=== PATIENT | male | born 1945 | race Caucasian/White ===

== ENCOUNTER 2024-07-04 17:49 | Emergency (ER) | payer OTHER, SELFPAY ==
[2024-07-04 19:00] VITALS: BP 136/67; PULSE 88; RESP 19; TEMP 37.1; O2SAT 99; BMI 25.5
--- NOTE | 2024-07-04 19:09 | XR_ITS ---
Examination: Shoulder,right, 3 views Technique: Shoulder AP internal rotation, AP external rotation, Y view shoulder, 3 views Exam date and time :June 24, 2024 at 2003 hrs. Indications: Patient fell 3 times today with injury to the right shoulder, right shoulder pain. Findings: Prominent osteopenia Moderate to advanced osteoarthritis glenohumeral joint No fracture or shoulder dislocation No AC joint separation Impression: No shoulder fracture or dislocation
--- NOTE | 2024-07-04 19:09 | XR_ITS ---
Examination: CT cervical spine without contrast 2-D sagittal reconstructions 2-D coronal reconstructions 3-D reconstructions. Exam date and time:July 04, 2024 1920 hrs. Indications: Ground-level fall today with injury to the neck, neck pain CTDI:vol (mGy) 7.68 DLP: (mGycm) 177 Technique: Multiple 2 mm axial sections of the cervical spine have been obtained. The coronal and sagittal reconstructions have been obtained. 3-D reconstructions have been obtained. Low dose protocols were performed. One or more of the following dose reduction techniques were used; automated exposure control, adjustment of the mA and/or KV according to patient size, use of iterative reconstruction technique. Findings: Axial sections demonstrate intact base of the skull. C1 exhibit satisfactory relationship to the odontoid. No acute cervical vertebral body fracture seen. Alignment posterior spinous processes satisfactory. Impression: No acute cervical fracture.
--- NOTE | 2024-07-04 19:09 | XR_ITS ---
Examination: PA chest single view Technique: Upright PA chest single view Exam date and time: July 04, 2024 2005 hrs. Comparison December 31, 2011 Indications: Onset chest pain after falling today with into the chest Findings: Normal heart size No pneumothorax Accentuation basilar bronchovascular markings No hemothorax Clavicles ribs appear intact as well as bones of the visualized shoulders Impression: No pneumothorax or pulmonary contusion
--- NOTE | 2024-07-04 19:09 | XR_ITS ---
Examination:Right hip AP, lateral, AP pelvis 3 views Technique: Hip AP lateral, AP pelvis, 3 views Exam date and time:July 04, 2024 at 2003 hrs. Indications: Patient fell 3 times a day with injury to the right hip, right hip pain. Findings: Prominent osteopenia No radiopaque fracture or dislocation Bones of the pelvis intact Impression: No right hip fracture or dislocation.
--- NOTE | 2024-07-04 19:09 | EKG_ITS ---
[facility] Test Date: 2024-07-04 Pat Name: SMITA WEISS Department: Room: - Gender: Male Tour Operator: : 1945 Requested By: Kyle Raygoza Order Number: [id number] Reading MD: Kyle Raygoza Measurements Intervals [place] Rate: 71 P: 75 NH: 176 QRS: 51 QRSD: 94 T: 34 QT: 378 QTc: 411 Interpretive Statements SINUS RHYTHM WITH MARKED SINUS ARRHYTHMIA NONSPECIFIC T-WAVE ABNORMALITY No previous ECG available for comparison /[id number]/[id number].pdf
--- NOTE | 2024-07-04 19:09 | XR_ITS ---
Examination: CT brain head without contrast. 2-D sagittal coronal reconstructions Date and time of exam:July 04, 2024 1920 hrs. Indications: Ground-level fall today with headache after head injury, dizziness, personal history left facial droop on December 31, 2011 right internal capsular CVA stroke CTDI: vol (mGy):47.1 DLP: (mGycm):886 Technique: Multiple CT axial sections of the brain have been obtained, 5 mm slice thickness. Contrast has not been administered. 2-D sagittal, coronal reconstructions have been obtained Low dose protocols were performed. One or more of the following dose reduction techniques were used; automated exposure control, adjustment of the mA and/or KV according to patient size, use of iterative reconstruction technique. Findings: No significant ventricular enlargement. Intra-axial or extra-axial hemorrhage density is not seen. No mass effect or midline shift Basal cisterns are not remarkable. Fourth ventricle is midline. Cranial vault intact. Impression: Negative for acute hemorrhage, mass effect or midline shift As clinically warranted brain MRI follow-up would best assess for acute ischemic change
--- NOTE | 2024-07-04 19:10 | EDRME_ITS ---
Rapid Medical Screening Exam [facility] Arrival date/time: 07/04/24 17:49 79M with history of prostate cancer, possible TIA/CVA presents to ED with R hip and shoulder pain after his leg gave out 3 times on him today. Chief Complaint: Extremity Injury, Upper Vital signs: Vital Signs Temperature 98.8 F 07/04/24 19:00 Pulse Rate 88 07/04/24 19:00 Respiratory Rate 19 07/04/24 19:00 Blood Pressure 136/67 H 07/04/24 19:00 Pulse Oximetry (%) 99 07/04/24 19:00 Oxygen Delivery Method Room Air 07/04/24 19:00
[2024-07-04 19:42] LABS: Basophils # (Auto) 0.1 Thou/mm3 (0.0-0.2); Basophils % (Auto) 0 % (0-2.5); Eosinophils % (Auto) 0 % (0-10); Hematocrit 38.2 % (41.0-53.0); Hemoglobin 13.3 g/dL (13.5-16.0); Immature Granulocytes % (Auto) 0 % (0-0); Immature Granulocytes Auto 0.08 Thou/mm3 (0.00-0.00); Lymphocytes # (Auto) 1.1 Thou/mm3 (1.0-4.8); Lymphocytes % (Auto) 6 % (10-50); Mean Corpuscular HGB Conc 34.8 g/dl (31.0-37.0); Mean Corpuscular Hemoglobin 30.9 pg (25.0-35.0); Mean Corpuscular Volume 89 fL (80-100); Monocytes # (Auto) 2.3 Thou/mm3 (0.0-0.8); Monocytes % (Auto) 12 % (0-12); Neutrophils # (Auto) 15.7 Thou/mm3 (1.8-7.7); Neutrophils % (Auto) 82 % (37-80); Nucleated Red Blood Cell % 0 /100 WBC (0); Platelet Count 216 Thou/mm3 (140-440); RDW Standard Deviation 43.8 fL (35.1-43.9); White Blood Count 19.1 Thou/mm3 (3.8-10.6)
[2024-07-04 19:56] LABS: INR 1.1 (0.9-1.3); Partial Thromboplastin Time 29.1 Seconds (22.0-36.0); Prothrombin Time 12.4 Seconds (9.0-12.2)
[2024-07-04 19:59] LABS: Alanine Aminotransferase 10 U/L (10-49); Albumin, Serum 4.8 gm/dL (3.4-4.8); Albumin/Globulin Ratio 1.5 (1.2-2.2); Alkaline Phosphatase 65 U/L (46-116); Anion Gap 6 (7-16); Aspartate Amino Transferase 23 U/L (0-34); BUN/Creatinine Ratio 14 Ratio (12-20); Bilirubin,Total 1.6 mg/dL (0.3-1.2); Blood Urea Nitrogen 13 mg/dL (9-23); Carbon Dioxide 26.6 mMol/L (20.0-31.0); Chloride 102 mMol/L (98-107); Creatinine (Component) 0.9 mg/dL (0.6-1.3); Estimated Creatinine Clearance 64.3 mL/min (>60); Globulin 3.1 gm/dL (2.3-3.5); Glucose 107 mg/dL (74-106); Osmolality,Calculated 270 (275-295); Potassium 3.6 mMol/L (3.4-5.1); Sodium 135 mMol/L (136-145); Total Protein 7.9 gm/dL (5.7-8.2); Troponin I < 0.020 ng/mL (0.0-0.045); eGFR > 60 See Note
[2024-07-04 21:01] VITALS: BP 126/82; PULSE 82; RESP 18; TEMP 37.5; O2SAT 96
[2024-07-04 23:45] VITALS: BP 117/72; PULSE 81; RESP 19; TEMP 37.6; O2SAT 96
[2024-07-05] VITALS (32 sets, daily range): BP systolic 100–147; BP diastolic 62–91; PULSE 63–93; RESP 12–31; TEMP 36.8–37.6; O2SAT 91–99
[2024-07-05 01:27] LABS: Collection Type, Urine Clean Catch
[2024-07-05 01:37] LABS: Bilirubin,Urine Negative (Negative); Blood,Urine 1+ (Negative); Clarity,Urine Clear (Clear/Hazy); Color,Urine Yellow (Lt Yel-Yel); Glucose, Urine Negative (Negative); Ketones,Urine 1+ (Negative); Leukocyte Esterase,Urine Negative (Negative); Nitrite,Urine Negative (Negative); PH,Urine 5.5 (5.0-7.0); Protein,Urine 2+ (Neg - Trace); RBC,Urine 3 /hpf (0-3); Specific Gravity,Urine 1.031 (1.001-1.035); Squamous Epithelial Cell,Urine < 1 /hpf (0-5); Urobilinogen,Urine Negative mg/dL (0.0-1.0); WBC,Urine 2 /hpf (0-5)
[2024-07-05 01:42] LABS: Amphetamine/Methamp Scrn,U Negative (Negative); Barbiturate Screen,Urine Negative (Negative); Benzodiazepines Screen,Urine Negative (Negative); Benzoylecgonine Screen, Ur Negative (Negative); Fentanyl Screen,Urine Negative (Negative); Opiate Screen,Urine Negative (Negative); THC Screen,Urine Negative (Negative)
--- NOTE | 2024-07-05 02:08 | PD.EDUPEX ---
Upper Extremity Injury RME/HPI General Chief Complaint: Extremity Injury, Upper Stated Complaint: ground level fall . right shoulder pain Time Seen by Provider: 07/05/24 07:13 Arrival date/time: 07/04/24 17:49 Limitations: no limitations RME / HPI RME / HPI narrative: 07/04/24 17:49 79M with history of prostate cancer, possible TIA/CVA presents to ED with R hip and shoulder pain after his leg gave out 3 times on him today. ----- Dr. Muhammad's Main ED Evaluation: 79-year-old with a possible TIA in the past, history of prostate cancer, presenting to the emergency department after his right leg gave out and he fell hurting his right hip and shoulder. The patient otherwise did not hit his head is not complaining of neck pain. Denies any other associated symptoms. Denies any loss of consciousness. Patient states he lives alone. Related Data Allergies Allergy/AdvReac Type Severity Reaction Status Date / Time clonidine AdvReac Severe LOWERS Verified 01/01/12 09:19 BLOOD PRESSURE AND HEART RATE TOO LOW. Review of Systems Review of Systems Systems Reviewed: All systems reviewed, normal except as documented Past Medical History Past Medical History CARDIAC: Positive Cardiac Disorders and Hypertension; Negative Congestive Heart Failure RESPIRATORY: Negative Chronic Obstructive Pulmonary Disease (COPD) GENITOURINARY: Negative Renal Disease ENDOCRINE: Negative Diabetes Mellitus Type 1 or Diabetes Mellitus Type 2 Social History SMOKING STATUS: Never smoker ED Exam General Limitations: Present no limitations General appearance: Present alert and in no apparent distress Head Head exam: Present atraumatic Eye Eye exam: Present normal appearance, PERRL and EOMI ENT ENT exam: Present normal exam, normal oropharynx and mucous membranes moist Neck Neck exam: Present normal inspection, full ROM and trachea midline Chest Chest inspection: Present normal inspection and symmetric chest wall rise Respiratory Respiratory exam: Present normal lung sounds bilaterally Cardiovascular Cardiovascular exam: Present regular rate, normal rhythm and normal heart sounds Abdominal Exam Abdominal exam: Present soft and normal bowel sounds Extremities Exam Extremities exam: Present normal inspection and full ROM Back Exam Back exam: Present normal inspection and full ROM Neurological Exam Neurological exam: Present alert, oriented X3 and CN II-XII intact Psychiatric Psychiatric exam: Present normal affect and normal mood Skin Skin exam: Present warm, dry, intact and normal color Course Course Course Narrative: CXR is ordered to r/o pneumothorax. 0600: Care signed out to the next oncoming provider. Past medical, surgical, social and family history reviewed. Vitals and home medications reviewed. Results and treatment plan discussed. They will assume the care of the patient at this time and will follow the patient, pending social human services assistants consultation. Quality Measures none Orders Category Date Time Status Consult Farm Supervisor X1 Care 07/05/24 05:46 Active EKG (ED ONLY) *Do not use* NOW Care 07/04/24 19:09 Completed Referral Physical Therapy Stat Cons 07/05/24 08:54 Active Diet Regular Diet 07/05/[address] cervical spine wo con Stat Exams 07/04/24 19:[address] head/brain wo con Stat Exams 07/04/24 19:09 Completed EKG (ED Only) Stat Exams 07/04/24 19:09 Draft XR chest 1V portable Stat Exams 07/04/24 19:09 Completed XR hip RT w pelvis min 4V Stat Exams 07/04/24 19:09 Completed XR shoulder RT min 2V Stat Exams 07/04/24 19:09 Completed CBC Stat Lab 07/04/24 19:30 Completed Comprehensive Metabolic Panel Stat Lab 07/04/24 19:30 Completed Drug Screen,Urine Stat Lab 07/05/24 00:45 Completed Partial Thromboplastin Time Stat Lab 07/04/24 19:30 Completed Path Review Blood Smear Stat Lab 07/04/24 19:30 Completed Prothrombin Time with INR Stat Lab 07/04/24 19:30 Completed Troponin I Stat Lab 07/04/24 19:30 Completed Urinalysis Stat Lab 07/05/24 00:45 Completed Vital Signs Vital signs: Vital Signs Temperature 98.8 F 07/04/24 19:00 Pulse Rate 88 07/04/24 19:00 Respiratory Rate 19 07/04/24 19:00 Blood Pressure 136/67 H 07/04/24 19:00 Pulse Oximetry (%) 99 07/04/24 19:00 Oxygen Delivery Method Room Air 07/04/24 19:00 Pulse ox is 99% on room air, which is normal according to my interpretation. Extremity Injury Patient data External records reviewed:: [facility] previous records (Per chart review, patient has no previous ED visits or admissions to this facility.) Clinical information provided by:: patient Social determinants that could affect healthcare access:: none Patient has the following chronic illnesses:: HTN How is presenting disease/condition affected by chronic disease/condition?: uneffected by Evaluation data The following diagnostics were reviewed and interpreted by me:: lab results, radiology exam(s) and EKG tracing(s) Lab and/or radiology exams considered but not ordered:: none Interpretation Summary: WBC count is elevated at 19.1, HnH is stable, troponin is normal, Total Bilirubin is slightly elevated at 1.6, PT is slightlt elevated at 12.4, PTT is normal, UDS is negative, according to my interpretation. EKG done at 1935, NSR, rate of 71, no ST elevations or depressions, QTc: 400, normal intervals, normal axis, no STEMI, no previous EKG available for comparison, according to my interpretation. ----- I have personally reviewed the radiology data and agree with the radiologist's interpretation below: [facility] Report Signed Patient: SMITA WEISS Record#: [id number] Birthdate: 1945 Age/Sex: 79 / M Location: [facility] Attending Dr: Ordering Physician: Kyle Raygoza PA-C Date of Service: 07/04/24 Procedure(s): CT cervical spine wo con Accession Number(s): [id number] cc: Yusef Casper MD; Kyle Raygoza PA-C; Mj Palacios MD~ Examination: CT cervical spine without contrast 2-D sagittal reconstructions 2-D coronal reconstructions 3-D reconstructions. Exam date and time:July 04, 2024 1920 hrs. Indications: Ground-level fall today with injury to the neck, neck pain CTDI:vol (mGy) 7.68 DLP: (mGycm) 177 Technique: Multiple 2 mm axial sections of the cervical spine have been obtained. The coronal and sagittal reconstructions have been obtained. 3-D reconstructions have been obtained. Low dose protocols were performed. One or more of the following dose reduction techniques were used; automated exposure control, adjustment of the mA and/or KV according to patient size, use of iterative reconstruction technique. Findings: Axial sections demonstrate intact base of the skull. C1 exhibit satisfactory relationship to the odontoid. No acute cervical vertebral body fracture seen. Alignment posterior spinous processes satisfactory. Impression: No acute cervical fracture. Dictated By: Yusef Casper MD Signed By: <Electronically signed by Yusef Casper MD in OV> 07/04/241940 ----- [facility] Report Signed Patient: SMITA WEISS Record#: [id number] Birthdate: 1945 Age/Sex: 79 / M Location: [facility] Attending Dr: Ordering Physician: Kyle Raygoza PA-C Date of Service: 07/04/24 Procedure(s): XR chest 1V portable Accession Number(s): [id number] cc: Yusef Casper MD; Kyle Raygoza PA-C; Mj Palacios MD~ Examination: PA chest single view Technique: Upright PA chest single view Exam date and time: July 04, 2024 2005 hrs. Comparison December 31, 2011 Indications: Onset chest pain after falling today with into the chest Findings: Normal heart size No pneumothorax Accentuation basilar bronchovascular markings No hemothorax Clavicles ribs appear intact as well as bones of the visualized shoulders Impression: No pneumothorax or pulmonary contusion Dictated By: Yusef Casper MD Signed By: <Electronically signed by Yusef Casper MD in OV> 07/04/242048 --------- [facility] Report Signed Patient: SMITA WEISS Record#: [id number] Birthdate: 1945 Age/Sex: 79 / M Location: [facility] Attending Dr: Ordering Physician: Kyle Raygoza PA-C Date of Service: 07/04/24 Procedure(s): CT head/brain wo con Accession Number(s): [id number] cc: Yusef Casper MD; Kyle Raygoza PA-C; Mj Palacios MD~ Examination: CT brain head without contrast. 2-D sagittal coronal reconstructions Date and time of exam:July 04, 2024 1920 hrs. Indications: Ground-level fall today with headache after head injury, dizziness, personal history left facial droop on December 31, 2011 right internal capsular CVA stroke CTDI: vol (mGy):47.1 DLP: (mGycm):886 Technique: Multiple CT axial sections of the brain have been obtained, 5 mm slice thickness. Contrast has not been administered. 2-D sagittal, coronal reconstructions have been obtained Low dose protocols were performed. One or more of the following dose reduction techniques were used; automated exposure control, adjustment of the mA and/or KV according to patient size, use of iterative reconstruction technique. Findings: No significant ventricular enlargement. Intra-axial or extra-axial hemorrhage density is not seen. No mass effect or midline shift Basal cisterns are not remarkable. Fourth ventricle is midline. Cranial vault intact. Impression: Negative for acute hemorrhage, mass effect or midline shift As clinically warranted brain MRI follow-up would best assess for acute ischemic change Dictated By: Yusef Casper MD Signed By: <Electronically signed by Yusef Casper MD in OV> 07/04/241938 ------- [facility] Report Signed Patient: SMITA WEISS [facility]. Record#: [id number] Birthdate: 1945 Age/Sex: 79 / M Location: [facility] Attending Dr: Ordering Physician: Kyle Raygoza PA-C Date of Service: 07/04/24 Procedure(s): XR hip RT w pelvis min 4V Accession Number(s): [id number] cc: Yusef Casper MD; Kyle Raygoza PA-C; Mj Palacios MD~ Examination:Right hip AP, lateral, AP pelvis 3 views Technique: Hip AP lateral, AP pelvis, 3 views Exam date and time:July 04, 2024 at 2003 hrs. Indications: Patient fell 3 times a day with injury to the right hip, right hip pain. Findings: Prominent osteopenia No radiopaque fracture or dislocation Bones of the pelvis intact Impression: No right hip fracture or dislocation. Dictated By: Yusef Casper MD Signed By: <Electronically signed by Yusef Casper MD in OV> 07/04/242051 ------- [facility] Report Signed Patient: SMITA WEISS [facility]. Record#: [id number] Birthdate: 1945 Age/Sex: 79 / M Location: [facility] Attending Dr: Ordering Physician: Kyle Raygoza PA-C Date of Service: 07/04/24 Procedure(s): XR shoulder RT min 2V Accession Number(s): [id number] cc: Yusef Casper MD; Kyle Raygoza PA-C; Mj Palacios MD~ Examination: Shoulder,right, 3 views Technique: Shoulder AP internal rotation, AP external rotation, Y view shoulder, 3 views Exam date and time :June 24, 2024 at 2003 hrs. Indications: Patient fell 3 times today with injury to the right shoulder, right shoulder pain. Findings: Prominent osteopenia Moderate to advanced osteoarthritis glenohumeral joint No fracture or shoulder dislocation No AC joint separation Impression: No shoulder fracture or dislocation Dictated By: Yusef Casper MD Signed By: <Electronically signed by Yusef Casper MD in OV> 07/04/242049 Medications / Prescriptions Medications or Prescriptions considered but not ordered:: none Medication administrations:: see above, if any Consultations Consultation(s) initiated? (list below): No Diagnosis Upper Extremity Injury Differential Diagnosis: other (fracture, dislocation, contusion) Most likely diagnosis given after review of the tests above:: as below Admission Indicated Admission indicated?: not indicated Admission Request Was there a request for admission?: No Disposition Plan Disposition Plan: other (specify) (Signed out to the next oncoming provider at 0600 pending social human services assistants consultation.) Discharge Plan Plan Patient condition on transfer: Stable Prescriptions/Referrals Referrals: Mj Palacios MD [Primary Care Provider] - In 1 week Problem List Clinical Impression: Fall from ground level Patient/Caregiver Discharge Instructions Education Materials: ED Fall with Uncertain Cause Print Language: Mohawk
--- NOTE | 2024-07-05 03:25 | PC.NURSE ---
Pt resting with eye closed. Respirations are even and unlabored. No s/s of acute distress noted. Bed to lowest position. Call light within reach. Plan of care ongoing.
[2024-07-05 04:40] LABS: Path Review Blood Smear Sent to Pathologist
--- NOTE | 2024-07-05 05:45 | PC.NURSE ---
At this time, pt is alert/oriented x3. No s/s of acute distress noted. Pt states his legs still feel weak, not sure if he is able to get up. Pt states he lives alone. He does not have any help at home. Dr. Mayer aware. Per MD will put in social service consult and PT evaluation.
--- NOTE | 2024-07-05 07:13 | EDNOTE_ITS ---
Emergency Room Addendum <Papa Dockery MD - Last Filed: 07/06/24 08:42> Addendum Narrative: 0600: Care assumed by previous shift provider. Past medical, surgical, social and family history reviewed. Vitals and home medications reviewed. Results and treatment plan discussed. I will assume the care of the patient at this time and will follow the patient, pending final disposition. <Wendy Platt - Last Filed: 07/05/24 17:29> Addendum Narrative: 0600: Care assumed by previous shift provider, Dr. Chun. Past medical, surgical, social and family history reviewed. Vitals and home medications reviewed. Results and treatment plan discussed. I will assume the care of the patient at this time and will follow the patient, pending social media strategist consult and final disposition. The patient was placed in ED observation care at 07/05/2024 at 0600 hours. The patient was placed in ED observation care pending social media strategist consult for placement. The patients past medical history, social history, and family history were reviewed. The plan of care will include serial examinations. Please refer to the emergency department record for history and examination.? While in ED observation the patient will have access to water, food, and personal hygiene. If the patient takes home medication(s), they will be continued in ED observation. Physical exam by me shows patient under no acute distress at this time. 1800: Patient was signed out to Dr. Chun. Past medical, surgical, social and family history reviewed. Vitals and home medications reviewed. Results and treatment plan discussed. They will assume the care of the patient at this time and will follow the patient, pending social media strategist.
--- NOTE | 2024-07-05 07:20 | PC.NURSE ---
Received report from Aleksandr RUIZ and assumed care of patient. Patient sleeping in bed with no signs of distress and vital signs stable.
--- NOTE | 2024-07-05 15:54 | PC.CC ---
Addendum entered by Nasir Hanna II 07/05/24 17:04: Pt accepted to [facility]. Addendum entered by Nasir Hanna II 07/05/24 16:51: [facility] has declined, stating no [facility] contract. Addendum entered by Nasir Hnana II 07/05/24 16:36: Inquiry uploaded to About to the following skilled facilities [facility] Original Note: Pt Von Yoon is a 79 yr old male to ED fro ground level fall, with RT shoulder pain. Pt held in ED overnight for SS consult. MACHINE ROPE MAKER CC met with pt at bedside, introducing self and role in pt care. At time of encounter pt is noted to be alert and oriented to person, place and situation. Pt is slightly hard of hearing. Pt able to confirm demographic information and is able to explain reason he came to ED. Per pt his leg gave out and he fell. Per pt this has never happened before. Per pt he lives in Nursing Home apartments in [place]. Pt reports living alone. Pt reports that at baseline he is able to ambulate independently and is also able to complete his own ADLs. Pt reports his spouse in 2003. Pt identifies his son Matty Yoon as surrogate DM, but is unable to provide contact information off hand. Pt reports optimal D/c plan will be for him to return to his apartment. Pt reports that he is uncertain how stable he will be on his feet at this time. Pt states he is open to short SNF placement for rehab if necessary. Pt is [facility] service connected at 75%. Pt denies any hx of MH. Pt denies ever being prescribed medications for MH reasons. Pt states he has never been a client of a [facility]. Pt denies any hx of ID/DD. ASW requested PT eval be ordered. 1114-MACHINE ROPE MAKER CC spoke with inpt PT-forge operator PT is not in house at this time, and will respond once arrives to hospital. Pt given status update and pending PT eval. PASRR has been completed and Inquiry has been uploaded to About pending PT eval for placement. Placement will require authorization. ED staff aware.
--- NOTE | 2024-07-05 18:31 | PD.EDADDENDU ---
Emergency Room Addendum <Vilma Chun MD - Last Filed: 07/05/24 18:32> Addendum Narrative: Pending authorization. <Talisha Storey - Last Filed: 07/06/24 05:12> Addendum Narrative: 1800: Care assumed from Dr. Dockery, the previous shift emergency physician. Past medical, surgical, social and family history reviewed. Vitals and home medications reviewed. Results and treatment plan discussed. I will assume the care of the patient at this time and will follow the patient, pending authorization. Please refer to the emergency department record for history and examination from initial visit. OBSERVATION NOTE: The patient was placed in ED observation care at 07/05/2024 at 1800. The patient was placed in ED observation care because of pending authorization for SNF placement. The patients past medical history, social history, and family history were reviewed. The plan of care will include serial examinations. 0600: Care signed out to the next oncoming provider. Past medical, surgical, social and family history reviewed. Vitals and home medications reviewed. Results and treatment plan discussed. They will assume the care of the patient at this time and will follow the patient, pending authorization for SNF.
[2024-07-06] VITALS (12 sets, daily range): BP systolic 97–155; BP diastolic 73–87; PULSE 70–90; RESP 14–21; TEMP 36.7–37.2; O2SAT 95–97; BMI 13.0
--- NOTE | 2024-07-06 08:42 | EDNOTE_ITS ---
Emergency Room Addendum Addendum Narrative: 0600: Care assumed by previous shift provider, Dr. Chun. Past medical, surgical, social and family history reviewed. Vitals and home medications reviewed. Results and treatment plan discussed. I will assume the care of the patient at this time and will follow the patient, pending psychiatric social worker supervisor consult and final disposition. The patient was placed in ED observation care at 07/05/2024 at 0600 hours. The patient was placed in ED observation care pending psychiatric social worker supervisor consult for placement. The patients past medical history, social history, and family history were reviewed. The plan of care will include serial examinations. Please refer to the emergency department record for history and examination.? While in ED observation the patient will have access to water, food, and personal hygiene. If the patient takes home medication(s), they will be continued in ED observation. Physical exam by me shows patient under no acute distress at this time. Patient accepted and transported to [facility] without event.
--- NOTE | 2024-07-06 09:05 | PC.NURSE ---
called PT for eval. they stated they did not see an order. order was placed yesterday at 800am. i placed another order and they stated they will come eval pt
--- NOTE | 2024-07-06 09:38 | PC.NURSE ---
Physical Therapy here evaluating PT
--- NOTE | 2024-07-06 10:01 | PC.CC ---
Shae SANTIAGO met with patient face to face introduced self, role, and reason for visit. Patient reports his neighbor has his keys and phone. Patient would like for this social security assessor to make contact with his neighbor. Patient's neighbor is Augie Gonzalez [phone], per patient's neighbor he will be bringing patient's cell phone to the hospital. ASW presented patient with accepting facilities. Patient reports he would like to go to [facility]. ASw to follow up with authorization.
--- NOTE | 2024-07-06 14:17 | PC.CC ---
AILEENwShae received a call from Mara from [place] who provided authorization for [facility]. [facility] ASW, made contact with Tiffany and notified her of patient needing transportation and she is helping arrange transportation.
--- NOTE | 2024-07-06 15:18 | PC.CC ---
Tiffany with the NH made arrangement for patient to be transported to [facility] with [facility] ETA p/u is [phone]. ASW provided information to JOSEPH Kulkarni, business strategist Sara, and Dr. Dockery. The patient was also made aware of this information.
== END 2024-07-06 17:05 | disposition skilled nursing facility (03) ==
PROVIDERS: Physician Assistant; Emergency Provider Emergency Medicine; PCP Family Medicine
DX: S49.91XA Unspecified injury of right shoulder and upper arm, initial encounter (principal); S19.9XXA Unspecified injury of neck, initial encounter; S09.90XA Unspecified injury of head, initial encounter; S79.911A Unspecified injury of right hip, initial encounter; R07.9 Chest pain, unspecified; I10 Essential (primary) hypertension; I49.8 Other specified cardiac arrhythmias; W18.30XA Fall on same level, unspecified, initial encounter; Z75.1 Person awaiting admission to adequate facility elsewhere
CPT/HCPCS: 36415; 70450; 71045; 72125; 73030; 73503; 80053; 80307; 81001; 84484; 85025; 85610; 85730; 93005; 99284